=== PATIENT | female | born 1975 | race Caucasian/White ===

== ENCOUNTER → 2022-12-14 08:09 | Outpatient (CLI) | payer MEDICARE, MEDICAID, SELFPAY ==
--- NOTE | 2022-12-14 | DI.MRI.S_ITS ---
PROCEDURE: MR PELVIS WO CON INDICATIONS: Radiculopathy, lumbar region TECHNIQUE: Noncontrast oblique axial and oblique coronal T1 spin echo and STIR through the lumbosacral plexus region. COMPARISON: [facility] [place], CR, XR PELVIS WITH LATERAL HIP LEFT, 12/06/2022, 13:21. FINDINGS: Image quality: Excellent. Lumbosacral plexus: Superior to the piriformis muscles, the pre-plexal structures appear normal, including the lumbosacral trunk and S1 root. Just anterior to the piriformis muscles, the sacral plexus proper demonstrates normal morphology (lumbosacral trunk, S1 to S3 nerve roots). Inferior to the piriformis muscles, the sciatic nerves appear normal. Soft tissues: There is mild asymmetric atrophy and grade 2 fatty infiltration of the left piriformis muscle. The right piriformis muscle is normal in bulk. No presacral masses. Rectum appears normal in caliber and wall thickness. No pathologic free pelvic fluid. No visualized adenopathy by size criteria. Bones: Mild focal osseous edema is seen within the left lauren sacrum adjacent to the sacroiliac joint. Marrow is normal in overall signal. Metal artifact is seen related to left hip and pelvic orthopedic hardware. IMPRESSION: 1. No extrinsic compression or significant abnormality is seen along the course of the lumbosacral plexus. 2. Mild asymmetric atrophy and grade 2 fatty infiltration of the left piriformis muscle. Right piriformis muscle is normal in bulk. 3. Mild focal osseous edema in the left hemisacrum adjacent to the sacroiliac joint may be related to mild degenerative changes or sacroiliitis. Approved by: Dick Rebollar M.D. on 12/14/2022 at 12:43
--- NOTE | 2022-12-14 | DI.MRI.S_ITS ---
PROCEDURE: MR LUMBAR SPINE WO CON INDICATIONS: Radiculopathy, lumbar region TECHNIQUE: Noncontrast sagittal T1 spin echo and T2 fast echo, sagittal STIR, and T2 fast spin echo through the lumbar spine. In cases with scoliosis, additional coronal T2 fast spin echo may be performed. COMPARISON: [facility] [place] [facility], CR, XR LUMBAR SPINE 2 OR 3 VIEWS, 12/06/2022, 13:13. FINDINGS: Image quality: Excellent. Alignment and Curvature: There is normal bony alignment. Bone Marrow: Marrow is of normal overall signal. No acute vertebral body compression fractures. Spinal Cord: Conus medullaris terminates at the T12 level. Visualized cord demonstrates normal signal and size. Paraspinous Soft Tissues: No paravertebral masses. Discs: Moderate desiccation is present at L4. T12-L1: No disc bulge, spinal stenosis or foraminal narrowing. L1-L2: No disc bulge, spinal stenosis or foraminal narrowing. Mild epidural lipomatosis. L2-L3: No disc bulge, spinal stenosis or foraminal narrowing. Mild epidural lipomatosis. L3-L4: Minimal disc bulge without spinal stenosis. Mild epidural lipomatosis as well as ligamentum flavum hypertrophy. L4-L5: Mild disc bulge with asymmetric superimposed right posterior paracentral protrusion. There is mild compromise at the right lateral recess. No foraminal narrowing. L5-S1: No disc bulge, spinal stenosis or foraminal narrowing. IMPRESSION: Disc bulge with superimposed protrusion at L4-5. Mild compromise of the right lateral recess. Dictated by: Magalis Watts M.D. on 12/14/2022 at 14:50 Approved by: Magalis Watts M.D. on 12/14/2022 at 14:52
== END ==
PROVIDERS: PCP Registered Nurse; Referring Provider Physical Medicine & Rehabilitation; Visit Provider Physical Medicine & Rehabilitation
DX: M54.16 Radiculopathy, lumbar region (principal)
CPT/HCPCS: 72148; 72195; A9579

== ENCOUNTER → 2023-05-12 09:52 | Outpatient (CLI) | payer MEDICARE, MEDICAID, SELFPAY ==
--- NOTE | 2023-05-12 09:53 | DI.MRI.S_ITS ---
PROCEDURE: MR CERVICAL SPINE WO CON INDICATIONS: radiculopathy, cervical region TECHNIQUE: Noncontrast sagittal T1 spin echo and T2 fast spin echo, sagittal STIR, foraminal oblique sagittal T2 fast spin echo, and axial gradient echo or T2 fast spin echo through the cervical spine. COMPARISON: None. FINDINGS: Image quality: Excellent. Alignment and Curvature: There is straightening of the normal cervical lordosis Bone Marrow: Marrow demonstrates normal overall signal. Spinal Cord: Visualized spinal cord has normal size and signal. No cerebellar tonsillar herniation. Paraspinous Soft Tissues: No paravertebral masses. Prevertebral soft tissues are normal in thickness. C2-C3: Normal appearance. C3-C4: Normal appearance. C4-C5: Disc space narrowing and hypertrophic facet joints results in mild central and mild left foraminal stenosis. C5-C6: Disc space narrowing and posterior disc osteophyte complex results in [id number] central stenosis. Hypertrophic facet joints contribute to moderate bilateral foraminal stenosis C6-C7: Disc space narrowing and posterior disc osteophyte complex mild central stenosis. Moderate right and no left foraminal stenosis. C7-T1: Normal appearance. IMPRESSION: Multilevel degenerative disc disease and arthropathy results in varying degrees of central and foraminal stenosis including mild to moderate central and moderate bilateral foraminal stenosis C5-6 Approved by: Darnell Garcia M.D. on 05/12/2023 at 9:59
== END ==
PROVIDERS: PCP Registered Nurse; Referring Provider Physical Medicine & Rehabilitation; Visit Provider Physical Medicine & Rehabilitation
DX: M50.10 Cervical disc disorder with radiculopathy, unspecified cervical region (principal); M48.02 Spinal stenosis, cervical region; M47.22 Other spondylosis with radiculopathy, cervical region
CPT/HCPCS: 72141

== ENCOUNTER 2023-11-18 05:58 | Day surgery (SDC) | payer MEDICARE, MEDICAID, SELFPAY ==
[2023-11-11 12:33] VITALS: BMI 28.6
[2023-11-18] VITALS (14 sets, daily range): BP systolic 122–190; BP diastolic 76–103; PULSE 77–115; RESP 10–17; TEMP 36.2–36.9; O2SAT 93–100; BMI 28.0
[2023-11-18] MEDS: LACTATED RINGERS 1,000 ML 42 ML IV ×2 (07:04→10:42)
--- NOTE | 2023-11-18 07:43 | PM.PREOP ---
Pre-operative Note Interval Note History & Physical reviewed/Exam performed by Physician: Yes Changes to H&P: No
--- NOTE | 2023-11-18 07:48 | P.OP_ITS ---
Operative Date/Time/Diagnoses Date of procedure: 11/18/23 Time of procedure: 07:55 Pre-op diagnosis: 1. C5-6 spinal stenosis 2. Cervical radiculopathy Post-op diagnosis: same Procedure & Clinicians Procedure: 1. C5-6 anterior cervical diskectomy and fusion 2. C5-6 anterior interbody cage placement 3. C5-6 anterior instrumentation with plate and screw placement in C5 and C6 vertebrae 4. Utilization of microsurgical technique and operating microscope Same procedure as scheduled: Yes Indications: Patient has been having chronic neck pain and worsening cervical radiculopathy. Patient was found have significant C5-6 bilateral foraminal stenosis with C6 nerve impingment correlating with patient's symptoms. Patient failed multiple conservative management with worsening pain weakness and numbness in her upper extremity. Patient has been having difficulty performing activity of daily living. After discussing risks benefits of treatment options, patient elected proceed with surgery. Surgeon: Rose Santa Microfilm Mounter: Rima Beauchamp Click Yes if Unassisted: No Anesthesia Type: General Operative Notes Closure Type: primary Specimen(s): none sent Prosthetic devices, grafts, tissues, transplants, or devices: Globus Extend Plate, Hedron C cage Blood products transfused: none Procedure in detail: Patient was seen in the preoperative area. Risks and benefits of the surgery was discussed with the patient. Informed consent was obtained from the patient and placed in the chart. Surgical site was marked. Patient was taken to the operative room. General anesthesia was administered. Prophylactic antibiotic was given to the patient less than 30 min before the incision was made. Patient was placed into a supine position on a radiolucent table. Patient's shoulders were taped down to allow proper C-arm imaging. Anterior cervical area was prepped and draped in a sterile fashion. Time-out was performed at this time. Using lateral C-arm imaging, the level between C5 and C6 was identified and marked on patient's neck. A oblique incision from midline towards medial border of sternocleidomastoid muscle was made. The platysma muscle was incised in line with skin incision. Metzenbaum scissor was used to develop the plane between the medial border of sternocleidomastoid d and the strap muscles medially. The carotid sheath and its contents were identified and protected behind the hand- held retractor during the entire case. The plane between the carotid sheath and strap muscles was developed with Metzenbaum scissors. Dissection was made down to the level of the anterior cervical fascia. Longus colli muscle was incised on the anterior aspect of vertebral bodies bilaterally from C5-C6. Spinal needle was placed into the C5-6 disc space and confirmed with lateral C-arm imaging. Using microsurgical technique and operative microscope, anterior cervical diskectomy was performed at C5-6 level. This was done by removing the disc material, removing the anterior and posterior osteophytes posterior longitudinal ligaments along with performing bilateral foraminotomies at the C5-6 levels. Patient was found to have severe foraminal stenosis bilaterally. Patient's stenosis was fully decompressed after decompression was completed. After the diskectomy was completed, an anterior interbody cage was obtained. The cage was packed with DBM bone grafting material. One cage each along with the bone grafting material was then packed into the interbody space at C5-6 along with an anterior cervical plate. The cervical plate was stabilized to the C5-C6 vertebrae using screws. After confirming placement of the hardware with AP and lateral C-arm imaging, the screws were locked into the plate using the locking mechanism and torque limiting screwdriver. After the hardware was placed and confirmed with AP and lateral C-arm imaging, the wound was irrigated with sterile normal saline. The platysma muscle and the subcutaneous tissue was closed with 2-0 Vicryl. The skin was closed with 4-0 Monocryl and Steri-Strips. Prior to skin closure bubble test was performed by placing normal saline to the wound while anesthesia administered via Cell the maneuver. There was no bubble visible during the maneuver confirming a negative test. Patient tolerated the procedure well. Patient was transferred recovery room in stable condition. There were no complications. The Operation could not have been safely performed without compromising the tech nical result or length of the procedure, without the assistance of a skilled surgical instruments inspector. The surgical instruments inspector was medically necessary for proper positioning, retraction and manipulation of instruments, proper exposure, surgical preparation, and manipulation of tissue. Complications: none Post-operative Condition: stable Disposition: PACU
[2023-11-18] MEDS: CEFAZOLIN 2 GM/100 ML PREMIX 100 ML IV (08:00)
--- NOTE | 2023-11-18 08:19 | SUR.OPER ---
Supine on padded OR bed, head on pillow, arms padded and tucked at sides, legs uncrossed, safety belt at thigh, tape from shoulders to toes on both sides.
[2023-11-18] MEDS: BUPIVACAINE 0.25% (PF) 10 ML, EPINEPHrine 0.15 MG INJ (08:22)
--- NOTE | 2023-11-18 09:48 | DI.RAD.S_ITS ---
PROCEDURE: XR CERVICAL SPINE 2V OR 3V INDICATIONS: C5-6 ACDF TECHNIQUE: Intraoperative fluoroscopic view(s) of the cervical spine were acquired. COMPARISON: None. FINDINGS: Bones: Intraoperative fluoroscopic views demonstrate anterior fusion and discectomy at C5-6. IMPRESSION: Intraoperative fluoroscopic views of ACDF at C5-6. Dictated by: Kate Epsaña M.D. on 11/18/2023 at 12:12 Approved by: Kate España M.D. on 11/18/2023 at 12:13
[2023-11-18] MEDS: ONDANSETRON 4 MG/2 ML INJ IV (09:52)
[2023-11-18] MEDS: HYDROMORPHONE 1 MG INJ IV ×2 (09:57→10:03)
[2023-11-18] MEDS: ACETAMINOPHEN 325 MG TABLET 650 MG PO (10:13)
[2023-11-18] MEDS: methocarbamoL 500 MG TABLET 750 MG PO (10:13)
[2023-11-18] MEDS: fentaNYL 100 MCG/2 ML INJ IV (10:18)
[2023-11-18] MEDS: OXYCODONE IR 5 MG TABLET PO (10:19)
[2023-11-18] MEDS: LORazepam 2 MG/ML INJ 0.25 MG IV (10:34)
--- NOTE | 2023-11-18 11:07 | SUR.PHASEII ---
Pt transferred to phase II with SBAR report to Rehan JASSO at bedside. Dressing remains CDI and trachea at midline. Neuro intact. Tolerating apple sauce and water and pills. No difficulty swallowing.
== END 2023-11-18 12:18 | disposition home or self-care (01) ==
PROVIDERS: PCP Registered Nurse; Referring Provider Registered Nurse; Visit Provider Orthopaedic Surgery Orthopaedic Surgery of the Spine
PROC: (CPT 22551; principal; 2023-11-18 07:45)
DX: M48.02 Spinal stenosis, cervical region (principal); M54.12 Radiculopathy, cervical region
CPT/HCPCS: 22551; 22853; 72040; 76000; C1713; J0171; J0330; J0690; J1100; J1170; J2060; J2250; J2405; J2704; J3010

== ENCOUNTER 2023-12-31 11:19 | Emergency (ER) | payer MEDICARE, MEDICAID, SELFPAY ==
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
[2023-12-31 11:41] VITALS: BP 135/96; PULSE 89; RESP 18; TEMP 37.1; O2SAT 98; BMI 26.6
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
[2023-12-31] MEDS: IBUPROFEN 400 MG TABLET 800 MG PO (13:28)
[2023-12-31 13:39] VITALS: BP 127/88; PULSE 79; RESP 18; O2SAT 98
== END 2023-12-31 13:40 | disposition home or self-care (01) ==
PROVIDERS: Emergency Provider Student in an Organized Health Care Education/Training Program; PCP Registered Nurse
DX: S63.630A Sprain of interphalangeal joint of right index finger, initial encounter (principal); W23.2XXA Caught, crushed, jammed or pinched between a moving and stationary object, initial encounter
CPT/HCPCS: 73140; 99283

== ENCOUNTER 2024-03-16 06:03 | Day surgery (SDC) | payer MEDICARE, MEDICAID, SELFPAY ==
[2024-03-16 06:33] VITALS: BP 150/85; PULSE 70; RESP 16; TEMP 36.5; O2SAT 100; BMI 29.3
[2024-03-16] MEDS: LACTATED RINGERS 1,000 ML 42 ML IV (06:56)
--- NOTE | 2024-03-16 07:19 | SUR.OPER ---
Prone on spine table, head in foam head support, padded chest and pelvic supports, gel pad at knees, lower legs supported by pillows; nipples, genitalia and toes free of pressure, arms secured on foam padded arm boards at <90 degrees abduction. Tape over blanket at thigh secured to table.
--- NOTE | 2024-03-16 07:41 | PM.PREOP ---
Pre-operative Note Interval Note History & Physical reviewed/Exam performed by Physician: Yes Changes to H&P: No
[2024-03-16] MEDS: CEFAZOLIN 2 GM/100 ML PREMIX 100 ML IV (07:56)
[2024-03-16] MEDS: BUPIVACAINE 0.25% (PF) 30 ML, EPINEPHrine 0.15 MG INJ (08:04)
--- NOTE | 2024-03-16 08:36 | DI.RAD.S_ITS ---
PROCEDURE: XR LUMBAR SPINE 2-3V INDICATIONS: L4-5 MICRODISCECTOMY TECHNIQUE: 2 intraoperative views of the lumbar spine were acquired. COMPARISON: None. FINDINGS: Fluoroscopic images demonstrate localization at L4-L5. IMPRESSION: Intraoperative guidance provided. Dictated by: Rehan Salazar M.D. on 03/16/2024 at 11:17 Approved by: Rehan Salazar M.D. on 03/16/2024 at 11:17
--- NOTE | 2024-03-16 08:54 | P.OP_ITS ---
Operative Date/Time/Diagnoses Date of procedure: 03/16/24 Time of procedure: 07:40 Pre-op diagnosis: 1. L4-5 disc herniation 2. Lumbar radiculopathy Post-op diagnosis: same Procedure & Clinicians Procedure: 1. L4-5 right microdiscectomy 2. Utilization of microsurgical technique and operating microscope Same procedure as scheduled: Yes Indications: Patient has been having chronic back pain and worsening lumbar radiculopathy. Patient was found to have a right-sided L4-5 disc herniation correlating with her right-sided lumbar radiculopathy. Patient failed multiple conservative management with worsening pain weakness and numbness in her lower extremity. Patient has been having difficulty performing activity of daily living. After discussing risks benefits of treatment options, patient elected proceed with surgery. Surgeon: Rose Santa Drawbench Operator Helper: Rima Beauchamp Click Yes if Unassisted: No Anesthesia Type: General Operative Notes Closure Type: primary Specimen(s): none sent Estimated Blood Loss (mL): 5 Blood products transfused: none Procedure in detail: Patient was seen in the preoperative area. Risks and benefits of the surgery was discussed with the patient. Informed consent was obtained from the patient and placed in the chart. Surgical site was marked. Patient was taken to the operative room. General anesthesia was administered. Prophylactic antibiotic was given to the patient less than 30 min before the incision was made. Patient was placed into a prone position on the [place] table. Patient's back was then prepped and draped in the sterile fashion. Time-out was performed at this time. Using AP and lateral C-arm imaging the interval between L4-5 was identified and marked on patient's back. A 1 inch incision 1 in from midline was made on the right side. The fascia was incised in line with skin incision. Globus MARS retractors was placed inside the incision and docked onto the L4 lamina. Using microsurgical technique and operating microscope, a L4 laminotomy was performed using a Kerrison rongeur. Liagamentum flavum was resected at the site of the laminotomy. The disc space at L4-5 was identified. Microdiscectomy was performed by incising the annulus with #11 blade. Microcurettes and pituitary was used to removed herniated disc fragments of disc from the epidural space. After the microdiskectomy was completed, the area medial lateral superior and inferior to the area of the microdiskectomy was inspected and explored using a micro curette. No other impinging structure was identified. The wound was then irrigated with sterile normal saline. 40 mg Depo-Medrol was placed into the epidural space. The deep fascia was closed with 1-0 Vicryl. The subcutaneous tissue was closed with 2-0 Vicryl. The skin was closed with 4-0 Monocryl. Patient tolerated the procedure well. There were no complications. Patient was transferred recovery room in stable condition. The Operation could not have been safely performed without compromising the technical result or length of the procedure, without the assistance of a skilled medical or surgical instrument maker. The medical or surgical instrument maker was medically necessary for proper positioning, retraction and manipulation of instruments, proper exposure, surgical preparation, and manipulation of tissue. Complications: none Post-operative Condition: stable Disposition: PACU Plan for aftercare: Discharge to home
[2024-03-16 09:01] VITALS: BP 148/77; PULSE 101; RESP 18; TEMP 36.6; O2SAT 97
[2024-03-16 09:05] VITALS: BP 141/84; PULSE 86; RESP 18; TEMP 36.4; O2SAT 98
[2024-03-16 09:10] VITALS: BP 123/75; PULSE 85; RESP 23; TEMP 36.4; O2SAT 97
[2024-03-16] MEDS: ONDANSETRON 4 MG/2 ML INJ IV (09:10)
[2024-03-16] MEDS: OXYCODONE IR 5 MG TABLET PO (09:10)
[2024-03-16 09:17] VITALS: BP 123/78; PULSE 86; RESP 16; TEMP 36.4; O2SAT 97
== END 2024-03-16 09:42 | disposition home or self-care (01) ==
PROVIDERS: PCP Registered Nurse; Referring Provider Orthopaedic Surgery Orthopaedic Surgery of the Spine; Visit Provider Orthopaedic Surgery Orthopaedic Surgery of the Spine
PROC: (CPT 63030; principal; 2024-03-16 07:45)
DX: M51.26 Other intervertebral disc displacement, lumbar region (principal); M54.16 Radiculopathy, lumbar region
CPT/HCPCS: 63030; 72100; 76000; J0171; J0330; J0690; J1100; J1170; J2250; J2405; J2704; J2919; J3010

== ENCOUNTER → 2024-10-06 08:26 | Outpatient (CLI) | payer MEDICARE, MEDICAID, SELFPAY ==
--- NOTE | 2024-10-06 08:28 | DI.ECHO.S_ITS ---
[facility] : : [address] : : [place] : : [id number] : : Phone: [phone] Echocardiogram Report + + :Name: HITESH BRENNAN Study Date: 10/06/2024 Height: 69 in : :[facility] ReadingLocation: Weight: 189 lb : : Gender: Female BSA: 2.0 m2 : :: 1975 Age: 48 yrs BP: 105/75 mmHg: :Reason For Study: CHEST PAIN : :Ordering Physician: KAT, : :CARLIE Performed By: Andrew Quarles : :Referring: CRALIE STEPHENS : + + Interpretation Summary Sinus bradycardia with heart rate 47-65 bpm. Normal LV size and wall thickness. Normal wall motion and LV systolic function. Ejection fraction is 60-65%. Normal chamber sizes. No significant valvular abnormalities. No prior study available for comparison. Procedure: A two-dimensional transthoracic echocardiogram with color flow and Doppler was performed. The study quality was technically good. There is no prior echocardiogram noted for this patient. The patient was in normal sinus rhythm during the exam. ARIANNE WITH BREATH HOLDING. The heart rate ranged between 47-65 bpm during the study. Left Ventricle: The left ventricle is normal in size. There is normal left ventricular wall thickness. There is no ventricular septal defect visualized. The ejection fraction is estimated to be 60-65%. There are no focal wall motion abnormalities. Diastolic parameters suggest probable normal left ventricular diastolic function and normal filling pressures. Right Ventricle: The right ventricle is normal in size and function. Atria: The left atrial size is normal. Right atrial size is normal. There is no Doppler evidence for an interatrial shunt. The interatrial septum bows toward left atrium consistent with elevated right atrial pressure. Mitral Valve: The mitral valve leaflets appear normal. There is no evidence of stenosis, fluttering, or prolapse. There is trace mitral regurgitation. Aortic Valve: The aortic valve is trileaflet. The aortic valve opens well. No aortic regurgitation is present. Tricuspid Valve: The tricuspid valve leaflets are thin and pliable. No tricuspid regurgitation. Pulmonic Valve: The pulmonic valve leaflets are thin and pliable; valve motion is normal. There is trace pulmonic regurgitation. Great Vessels: The aortic root is normal size. The dimensions of the ascending aorta are normal. The pulmonary artery is normal size. The IVC is of normal diameter and collapses greater than 50% with a sniff. This suggests a low right atrial pressure of 3 mm Hg. Pericardium/ Pleura There is no pericardial effusion. There is no pleural effusion. MMode/2D Measurements & Calculations LVIDd: 4.9 cm LVOT diam: 2.0 cm LVIDs: 3.3 cm Ao root diam: 2.8 cm FS: 33.8 % asc Aorta Diam: 3.3 cm EPSS: 0.66 cm Ao Arch Diam (Prox Trans): 1.8 cm IVSd: 1.1 cm LVPWd: 0.82 cm LV anderson. diameter/BSA (cm/m^2): 2.4 LV sys. diameter/BSA (cm/m^2): 1.6 LA A2 area: 18.7 cm2 RA long axis: 4.7 cm LA A4 area: 21.0 cm2 RA area: 11.1 cm2 LA length (vol): 5.9 cm RA vol: 22.2 ml LA vol: 56.6 ml RA : 11.0 ml/m2 LA vol index: 28.1 ml/m2 IVC diam: 1.4 cm RVD1 (basal): 3.4 cm RVD2 (mid): 2.5 cm TAPSE: 2.6 cm Doppler Measurements & Calculations Ao V2 max: 128.5 cm/sec LVOT Max Orlin: 101.8 cm/sec Ao V2 mean: 94.0 cm/sec LV V1 max P.1 mmHg Ao max P.6 mmHg LV V1 VTI: 25.0 cm Ao mean P.9 mmHg BEST(I,D): 2.6 cm2 Ao V2 VTI: 29.7 cm BEST(V,D): 2.4 cm2 sev ratio: 0.84 BEST indexed to BSA (cm^2/m^2): 1.3 MV E max orlin: 79.9 cm/sec PA V2 max: 92.7 cm/sec MV A max orlin: 64.6 cm/sec PA V2 mean: 59.5 cm/sec MV E/A: 1.2 PA mean P.6 mmHg Med Peak E' Orlin: 11.0 cm/sec PA pr(Accel): -11.8 mmHg E/E' med: 7.3 Lat Peak E' Orlin: 13.7 cm/sec E/E' lat: 5.8 E/e' average: 6.6 MV dec time: 0.19 sec SV(LVOT): 76.2 ml Electronically signed by: Vandana Mckeon M.D. on Reading Physician:10/08/2024 11:17 AM
== END ==
PROVIDERS: PCP Obstetrics & Gynecology Maternal & Fetal Medicine; Referring Provider Internal Medicine Cardiovascular Disease; Visit Provider Internal Medicine Cardiovascular Disease
DX: R07.9 Chest pain, unspecified (principal)
CPT/HCPCS: 93306